=== PATIENT | male | born 1985 | race American Indian/Alaskan Native ===

== ENCOUNTER 2020-08-10 12:01 | Outpatient (CLI) | payer OTHER ==
--- NOTE | 2020-08-10 14:12 | Fluoroscopy Report ---
ESOPHAGRAM INDICATION / CLINICAL INFORMATION: DYSPHAGIA TECHNIQUE: Esophagram was performed with double contrast barium and air. COMPARISON: None available. FINDINGS: MOTILITY: No significant abnormality. MUCOSA: No significant abnormality. MASS: None. STRICTURE: None. HIATAL HERNIA: None. REFLUX: None. BARIUM TABLET: Tablet passed into the stomach without delay. ADDITIONAL FINDINGS: None. Fluoroscopy time: 1.5 minutes. Fluoroscopy images: 17. IMPRESSION: 1. No significant abnormality. Signer Name: Paramjit Altman MD Signed: 08/10/2020 2:08 PM Workstation Name: [id number]
== END 2020-08-10 12:02 | disposition home or self-care (01) ==
LOC: FLUORO 12:01
PROVIDERS: ATTEND Psychiatry & Neurology Psychiatry
DX: R13.10 Dysphagia, unspecified (principal)
CPT/HCPCS: 74221